=== PATIENT | female | born 1955 | race American Indian/Alaskan Native ===

== ENCOUNTER 2017-09-08 12:25 | Outpatient (CLI) | payer MEDICARE ==
--- NOTE | 2017-09-08 13:35 | XRay Report ---
X-RAY BILATERAL HAND THREE VIEWS EACH: 09/08/17 CLINICAL: And pain. FINDINGS: Right:Periarticular osteopenia. Mild narrowing of the first MCP joint. No erosions. Mild osteoarthritis at the basal joint of the thumb. Mild radiocarpal joint arthritis. The carpal bones are intact. No fracture or dislocation.Normal soft tissues. Left: Periarticular osteopenia. A single erosion of the medial aspect of the second metacarpal head. No other erosions. Narrowing of the first MCP joint. Osteoarthritis at the basal joint of the thumb and IP joint of the thumb. The carpal bones are intact. The distal radius and ulna are intact. No fracture or dislocation.Normal soft tissues. IMPRESSION: Mild arthritis as described above.
== END 2017-09-08 12:26 | disposition home or self-care (01) ==
LOC: SPVIMAG 12:25
PROVIDERS: ATTEND Orthopaedic Surgery
DX: M18.9 Osteoarthritis of first carpometacarpal joint, unspecified (principal); M85.88 Other specified disorders of bone density and structure, other site